=== PATIENT | female | born 1935 | race African-American/Black ===

== ENCOUNTER 2017-03-06 08:13 | Inpatient (IN) | payer MEDICARE, MEDICAID ==
[~2017-03-06] VITALS: Ht 170.2 cm; Wt 79.8 kg
[~2017-03-06 08:13] MED LIST: AMLO10TA4 PO; CALC667C4 PO; DOXA4TAB3 PO; HYDR-4134 PO; LOSA100T14 PO; NEPROVITE PO; OMEP20TA80 PO; PROT40 PO; RANI-84 PO; SIMV10TA2 PO
[2017-03-06] MEDS ORDERED: ONDANSETRON HCL 4MG/2ML VIAL IV ONE (09:00)
[2017-03-06 09:09] LABS: HEMOGLOBIN. 8.2 g/dL (12.0-16.0); MEAN CORPUSCULAR HEMOGLOBIN 30.2 pg (28.0-32.0); MEAN CORPUSCULAR VOLUME 92.6 fL (81.0-99.0); PLATELET 316 x1000/uL (130-400); RED CELL DISTRIBUTION WIDTH 15.7 % (11.6-14.6)
[2017-03-06 09:18] LABS: CHLORIDE 88 mEq/L (98-107); INR 1.1; PARTIAL THROMBOPLASTIN TIME 31.7 sec (24.0-34.0); PROTHROMBIN TIME 11.4 sec
[2017-03-06 09:25] LABS: CARBON DIOXIDE 28 mEq/L (21-32)
[2017-03-06 09:28] LABS: TROPONIN I 0.02 ng/mL (0.00-0.04)
[2017-03-06 09:36] LABS: PLATELET ESTIMATE NORMAL
[2017-03-06] MEDS ORDERED: SODIUM CHLORIDE 0.9% 250 ML IV ONE (11:06)
[2017-03-06 14:15] VITALS: BP 186/74
[2017-03-06] MEDS ORDERED: NA PHOS,M-B/NA PHOS,DI-BA ENEMA 118ML PR PRN (15:45)
[2017-03-06] MEDS ORDERED: GUAIFENESIN 200MG/10ML SUGAR FREE UDC PO PRN (15:45)
[2017-03-06] MEDS ORDERED: CLONIDINE 0.1MG TABLET PO PRN (15:45)
[2017-03-06] MEDS ORDERED: IPRATROPIUM/ALBUTEROL 0.5-3(2.5)MG/3ML NEB INH PRN (15:45)
[2017-03-06] MEDS ORDERED: DOCUSATE SODIUM 100MG CAPSULE PO PRN (15:45)
[2017-03-06 16:00] VITALS: BP 166/88
[2017-03-06] MEDS ORDERED: HEPARIN SODIUM 1,000 UNIT/1ML VIAL IV NR (16:00)
[2017-03-06] MEDS ORDERED: MVI, ADULT NO.1 10 ML, FOLIC ACID 1 MG, THIAMINE HCL 100 MG in SODIUM CHLORIDE 0.9% 1,0... IV NR ×4 (18:00)
[2017-03-06] MEDS: ACETAMINOPHEN 325MG TABLET PO PRN (18:06)
[2017-03-06 20:00] VITALS: BP 167/80
[2017-03-06] MEDS ORDERED: HYDRALAZINE HCL 25MG TABLET PO SCH (21:00)
[2017-03-06] MEDS ORDERED: ATORVASTATIN CALCIUM 10MG TABLET PO SCH (21:00)
[2017-03-06] MEDS ORDERED: MEDICATION NOT ON FORMULARY EA (Omeprazole 20 MG) PO SCH (21:00)
[2017-03-06] MEDS ORDERED: HYDRALAZINE HCL 50MG TABLET PO SCH (22:00)
[2017-03-06] MEDS: PANTOPRAZOLE 40MG DR TABLET PO SCH (22:11)
[2017-03-07] VITALS (17 sets, daily range): BP systolic 104–217; BP diastolic 57–97
[2017-03-07] MEDS ORDERED: HYDRALAZINE HCL 50MG TABLET PO SCH
[2017-03-07] MEDS: DIPHENHYDRAMINE 50MG/ML VIAL IV PRN ×4 (02:03→22:53)
[2017-03-07] MEDS: ACETAMINOPHEN 325MG TABLET PO PRN ×3 (02:05→13:54)
[2017-03-07] MEDS: ONDANSETRON HCL 4MG/2ML VIAL IV PRN ×2 (06:17→22:53)
[2017-03-07] MEDS: HYDRALAZINE HCL 50MG TABLET PO SCH ×3 (06:17→18:52)
[2017-03-07 06:22] LABS: BASOPHILS % 0.9 % (0.0-2.0); EOSINOPHILS % 1.5 % (0.0-5.0); HEMATOCRIT. 22.2 % (36.0-48.0); HEMOGLOBIN. 7.5 g/dL (12.0-16.0); LYMPHOCYTES % 17.8 % (20.0-50.0); MEAN CORPUSCULAR HEMOGLOBIN 31.5 pg (28.0-32.0); MEAN CORPUSCULAR VOLUME 93.1 fL (81.0-99.0); MEAN PLATELET VOLUME 7.4 fl (7.4-10.4); MONOCYTES % 8.5 % (2.0-8.0); NEUTROPHILS % 71.3 % (40.0-76.0); PLATELET 262 x1000/uL (130-400); RED BLOOD CELL COUNT 2.38 mill/uL (4.2-5.4); RED CELL DISTRIBUTION WIDTH 15.6 % (11.6-14.6)
[2017-03-07 06:43] LABS: TROPONIN I 0.13 ng/mL (0.00-0.04)
[2017-03-07] MEDS ORDERED: CALCIUM ACETATE 667MG CAPSULE PO SCH (07:50)
[2017-03-07] MEDS: LORAZEPAM 0.5MG TABLET PO PRN ×2 (08:11→18:52)
[2017-03-07] MEDS ORDERED: AMLODIPINE 10MG TABLET PO SCH (09:00)
[2017-03-07] MEDS ORDERED: PANTOPRAZOLE 40MG DR TABLET PO SCH (09:00)
[2017-03-07] MEDS ORDERED: LOSARTAN POTASSIUM 100 MG TABLET PO SCH (09:00)
[2017-03-07] MEDS ORDERED: DOXAZOSIN MESYLATE 4MG TABLET PO SCH (09:00)
[2017-03-07] MEDS ORDERED: RANITIDINE HCL 150 MG PO SCH (09:00)
[2017-03-07] MEDS ORDERED: FOLIC ACID/VITAMIN B COMP W-C TABLET PO SCH (09:00)
[2017-03-07] MEDS: AMLODIPINE 10MG TABLET PO SCH (09:49)
[2017-03-07] MEDS: PANTOPRAZOLE 40MG DR TABLET PO SCH ×2 (09:49→21:41)
[2017-03-07] MEDS: CALCIUM ACETATE 667MG CAPSULE PO SCH ×3 (09:49→18:52)
[2017-03-07] MEDS: FOLIC ACID/VITAMIN B COMP W-C TABLET PO SCH (09:49)
[2017-03-07] MEDS: LOSARTAN POTASSIUM 100 MG TABLET PO SCH (09:49)
[2017-03-07] MEDS: LACTULOSE 20G/30ML UDC PO SCH ×2 (13:51→21:39)
[2017-03-07] MEDS: DOXAZOSIN MESYLATE 4MG TABLET PO SCH (21:00)
[2017-03-07] MEDS: ATORVASTATIN CALCIUM 10MG TABLET PO SCH (21:39)
[2017-03-08] VITALS (9 sets, daily range): BP systolic 90–182; BP diastolic 44–98
[2017-03-08] MEDS: HYDRALAZINE HCL 50MG TABLET PO SCH ×4 (00:48→17:30)
[2017-03-08] MEDS: LACTULOSE 20G/30ML UDC PO SCH ×2 (06:02→14:03)
[2017-03-08] MEDS: ACETAMINOPHEN 325MG TABLET PO PRN (06:03)
[2017-03-08 06:45] LABS: BASOPHILS % 0.4 % (0.0-2.0); EOSINOPHILS % 0.7 % (0.0-5.0); HEMATOCRIT. 30.9 % (36.0-48.0); HEMOGLOBIN. 10.4 g/dL (12.0-16.0); LYMPHOCYTES % 13.3 % (20.0-50.0); MEAN CORPUSCULAR HEMOGLOBIN 31.3 pg (28.0-32.0); MEAN CORPUSCULAR VOLUME 92.5 fL (81.0-99.0); MEAN PLATELET VOLUME 7.5 fl (7.4-10.4); MONOCYTES % 7.8 % (2.0-8.0); NEUTROPHILS % 77.8 % (40.0-76.0); PLATELET 293 x1000/uL (130-400); RED BLOOD CELL COUNT 3.34 mill/uL (4.2-5.4); RED CELL DISTRIBUTION WIDTH 15.7 % (11.6-14.6)
[2017-03-08] MEDS: CALCIUM ACETATE 667MG CAPSULE PO SCH ×3 (08:38→17:40)
[2017-03-08] MEDS: FOLIC ACID/VITAMIN B COMP W-C TABLET PO SCH (08:38)
[2017-03-08] MEDS: PANTOPRAZOLE 40MG DR TABLET PO SCH ×2 (08:38→22:00)
[2017-03-08] MEDS: LOSARTAN POTASSIUM 100 MG TABLET PO SCH (08:39)
[2017-03-08] MEDS: AMLODIPINE 10MG TABLET PO SCH (08:39)
[2017-03-08] MEDS: LORAZEPAM 0.5MG TABLET PO PRN (21:59)
[2017-03-08] MEDS: ATORVASTATIN CALCIUM 10MG TABLET PO SCH (21:59)
[2017-03-08] MEDS: DOXAZOSIN MESYLATE 4MG TABLET PO SCH (22:00)
[2017-03-09] VITALS (7 sets, daily range): BP systolic 111–124; BP diastolic 58–88
[2017-03-09] MEDS: HYDRALAZINE HCL 50MG TABLET PO SCH ×4 (01:06→18:39)
[2017-03-09] MEDS: CALCIUM ACETATE 667MG CAPSULE PO SCH ×3 (09:06→18:39)
[2017-03-09] MEDS: AMLODIPINE 10MG TABLET PO SCH (09:06)
[2017-03-09] MEDS: FOLIC ACID/VITAMIN B COMP W-C TABLET PO SCH (09:06)
[2017-03-09] MEDS: PANTOPRAZOLE 40MG DR TABLET PO SCH (09:06)
[2017-03-09] MEDS: LOSARTAN POTASSIUM 100 MG TABLET PO SCH (09:07)
[2017-03-09] MEDS: ACETAMINOPHEN 325MG TABLET PO PRN (19:24)
== END 2017-03-09 19:55 | DRG 291 ==
LOC: ER 08:30 → 6WST 11:02 → ENRESERV 12:40
PROVIDERS: ADMIT Internal Medicine; ATTEND Internal Medicine
PROC: 5A1D60Z (ICD-10-PCS; principal; 2017-03-06)
DX: I13.2 Hypertensive heart and chronic kidney disease with heart failure and with stage 5 chronic kidney disease, or end stage renal disease (principal); N18.6 End stage renal disease; I50.22 Chronic systolic (congestive) heart failure; Z96.641 Presence of right artificial hip joint; K21.9 Gastro-esophageal reflux disease without esophagitis; D64.9 Anemia, unspecified; Z96.652 Presence of left artificial knee joint; F03.90 Unspecified dementia, unspecified severity, without behavioral disturbance, psychotic disturbance, mood disturbance, and anxiety; F41.9 Anxiety disorder, unspecified; I48.0 Paroxysmal atrial fibrillation; I73.9 Peripheral vascular disease, unspecified; K59.00 Constipation, unspecified; M19.90 Unspecified osteoarthritis, unspecified site; Z80.3 Family history of malignant neoplasm of breast; Z87.440 Personal history of urinary (tract) infections; Z99.2 Dependence on renal dialysis; Z88.6 Allergy status to analgesic agent; Z88.0 Allergy status to penicillin; Z82.49 Family history of ischemic heart disease and other diseases of the circulatory system
CPT/HCPCS: 36415; 71010; 80048; 80053; 82040; 82270; 82962; 83690; 84484; 85025; 85610; 85730; 86850; 86900; 86920; 87015; 87045; 87427; 87449; 93005; 96361; 96374; 99285; J1200; J2405; J3411; J3490; J7030; J7040; J7050; P9016

== ENCOUNTER 2018-03-31 20:28 | Emergency (ER) | payer MEDICARE, MEDICAID ==
[~2018-03-31] VITALS: Ht 165.1 cm; Wt 59.0 kg
[~2018-03-31 20:28] MED LIST changes: +ACET-2178 PO; +AMIN30LI2 PO; -AMLO10TA4 PO; +AMLO10TA80 PO; +ATOR10TA69 PO; +BISA-81 PO; -CALC667C4 PO; +CALC668T PO; +CINA30 PO; +CLON0.1T PO; +CLOP75TA16 PO; +CYAN10009 PO; +DOCU-150 PO; +IBUP-2028 PO; +LACT10SO6 PO; +LORA10TA7 PO; -LOSA100T14 PO; +LOSA100T3 PO; +MOM PO; -NEPROVITE PO; +NEPVIT PO; +NUT.237L64 PO; -OMEP20TA80 PO; +PANT40SU PO; -PROT40 PO; -RANI-84 PO; +SENN8.6T21 PO; -SIMV10TA2 PO
[2018-03-31] MEDS ORDERED: ONDANSETRON HCL 4MG/2ML VIAL IV STA (22:16)
[2018-03-31] MEDS ORDERED: MORPHINE SULFATE 4 MG/ML CPJ (NOT FOR IM USE) IV STA (22:16)
[2018-03-31 23:49] LABS: BASOPHILS % 0.9 % (0.0-2.0); EOSINOPHILS % 2.9 % (0.0-5.0); HEMATOCRIT. 31.4 % (36.0-48.0); HEMOGLOBIN. 10.4 g/dL (12.0-16.0); LYMPHOCYTES % 22.7 % (20.0-50.0); MEAN CORPUSCULAR HEMOGLOBIN 32.9 pg (28.0-32.0); MONOCYTES % 9.6 % (2.0-8.0); NEUTROPHILS % 63.9 % (40.0-76.0); PLATELET 278 x1000/uL (130-400); RED BLOOD CELL COUNT 3.18 mill/uL (4.2-5.4); RED CELL DISTRIBUTION WIDTH 16.7 % (11.6-14.6)
[2018-03-31 23:57] LABS: CHLORIDE 91 mEq/L (98-107)
[2018-04-01] MEDS ORDERED: KETOROLAC 30MG/ML VIAL IV ONE (01:45)
[2018-04-01 05:38] VITALS: BP 132/84
== END 2018-04-01 05:40 | disposition home or self-care (01) ==
LOC: ER 20:28
DX: M17.0 Bilateral primary osteoarthritis of knee (principal); G89.29 Other chronic pain; I13.2 Hypertensive heart and chronic kidney disease with heart failure and with stage 5 chronic kidney disease, or end stage renal disease; E11.22 Type 2 diabetes mellitus with diabetic chronic kidney disease; N18.6 End stage renal disease; I50.9 Heart failure, unspecified; K21.9 Gastro-esophageal reflux disease without esophagitis; E78.00 Pure hypercholesterolemia, unspecified; I99.9 Unspecified disorder of circulatory system; Z99.2 Dependence on renal dialysis; Z88.0 Allergy status to penicillin; Z88.6 Allergy status to analgesic agent; Z88.8 Allergy status to other drugs, medicaments and biological substances
CPT/HCPCS: 36415; 71045; 80053; 84484; 85025; 93005; 96374; 96375; 99285; J1885; J2270; J2405